=== PATIENT | male | born 1955 | race Caucasian/White ===

== ENCOUNTER → 2018-10-06 | Outpatient (CLI) | payer MEDICARE, OTHER ==
--- NOTE | 2018-10-06 14:25 | PCVCIMAG ---
APPROVED REPORT Study performed: 10/06/2018 12:32:11 Exam: Stress Echocardiogram Indication: CAD s/p CABG Patient Location: Echo lab Stress Nurse: Irena Montenegro RN Room #: 2 Status: routine Ht: 5 ft 11 in HR: 82 bpm BP: 134/82 mmHg Rhythm: NSR Medical History Medical History: HTN,GLYNN Cardiac Risk Factors: HTN Previous Cardiac Procedures: CABG Pretest Chest Pain Characteristics: No chest pain Exercise History: Physically active Procedure The patient underwent an Exercise Stress Test using the Dawit Protocol. Blood pressure, heart rate, and EKG were monitored. An Echocardiogram was performed by vehicle glass technician in four stages in quad fashion. At peak stress, four selected images were obtained and placed side by side with resting images for comparison. Stress Test Details Stress Test: Exercise stress testing was performed using a Dawit protocol. HR Resting HR: 82 bpmMax Heart Rate (APMHR): 155 bpm Max HR Achieved: 144 bpmTarget HR (85% APMHR): 131 bpm % of APMHR: 92 Recovery HR: 96 bpm HR response to stress: Normal HR response to stress BP Resting BP: 134/82 mmHg Max BP: 188/80 mmHg Recovery BP: 158/78 mmHg BP response to stress: Normal blood pressure response to stress. ECG Resting ECG: Sinus Rhythm Stress ECG: Sinus Rhythm ST Change: Non-ischemic Maximum ST Deviation: 0 mm Arrhythmia: Rare PVCs Recovery ECG: Sinus Rhythm Recovery ST Change: Non-ischemic Recovery ST Deviation: 0 mm Recovery Arrhythmia: VPC Clinical Reason for Termination: Maximal effort Stress Symptoms: Fatigue Exercise duration: 9 min 33 sec Highest Stage Achieved: Stage 4: 4.2 mph at 16% grade. Exercise capacity: 11.7 METs Overall Exercise Capacity for Age: Good Scale: Active Angina Score: None No complications. Stress ECG Conclusion The patient exercised according to the DAWIT protocol for9:33 mins; achieving a work level of 11.70 METS. The resting heart rate of 82 bpm memo to a maximum heart rate of 144 bpm. This value represent 92% of the maximal, age-predicted heart rate. The resting blood pressure of 134/82 mmHg, memo to a maximum blood pressure of 188/80 mmHg. The exercise test was stopped due to fatigue. Julio Treadmill Score is 9.0 which is Low risk. Pre-Stress Echo The resting Echocardiogram showed normal left ventricular contractility with an estimated Ejection Fraction of about 55-60%. Normal wall motion in all segments on baseline images. Post-Stress Echo The stress Echocardiogram showed normal left ventricular contractility with an estimated Ejection Fraction of about 65-70%. Normal augmentation of wall motion in all segments on post stress images. Clinical No clinical or ECG evidence for ischemia. Conclusion Clinical Response: Non-ischemic Exercise Capacity: Average Stress ECG Response: Non-ischemic Stress Echo Images: Non-ischemic No clinical, EKG or echocardiographic evidence for ischemia. No echocardiographic evidence for exercise induced ischemia. Normal stress echocardiogram with maximal exercise stress. <Conclusion> No clinical, EKG or echocardiographic evidence for ischemia. No echocardiographic evidence for exercise induced ischemia. Normal stress echocardiogram with maximal exercise stress.
== END | disposition home or self-care (01) ==
LOC: PCVCIMAG 12:35
PROVIDERS: ATTEND Internal Medicine
DX: I25.10 Atherosclerotic heart disease of native coronary artery without angina pectoris (principal); I10 Essential (primary) hypertension; I65.23 Occlusion and stenosis of bilateral carotid arteries; G47.33 Obstructive sleep apnea (adult) (pediatric); E78.5 Hyperlipidemia, unspecified; Z95.1 Presence of aortocoronary bypass graft
CPT/HCPCS: 93005; 93325; 93351; G0463